=== PATIENT | male | born 1940 | race Caucasian/White ===

== ENCOUNTER 2017-01-06 05:57 | Day surgery (SDC) | payer MEDICARE, OTHER ==
[2017-01-06] MEDS ORDERED: DIPRIVAN 200 MG/20 ML IV ONE (05:58)
[2017-01-06] MEDS ORDERED: SUBLIMAZE 100 MCG/2 ML IV ONE (05:58)
[2017-01-06] MEDS ORDERED: Ketamine HCl 50 MG/ML IJ ONE (05:58)
[2017-01-06] MEDS ORDERED: Xopenex 1.25 MG/0.5 ML UD NEBULE IH ONE (06:47)
[2017-01-06] MEDS ORDERED: Lactated Ringers 1,000 ML IV SCH (07:00)
[2017-01-06] MEDS ORDERED: Sodium Chloride 3 ML UD NEBULES IH SCH (07:00)
[2017-01-06 11:09] VITALS: BP 140/79; PULSE 71; O2SAT 97
--- NOTE | 2017-01-06 11:15 | OP ---
SURGERY DATE/TIME: 01/06/2017 0800 PREOPERATIVE DIAGNOSIS: Iron deficiency anemia. POSTOPERATIVE DIAGNOSES: 1) Mild gastritis. 2) Normal colon. 3) Poor bowel prep. PROCEDURES: 1) EGD. 2) Colonoscopy. SURGEON: Jose Angel Elmore M.D. ANESTHESIA: MAC by Chinedu Jose CRNA. ESTIMATED BLOOD LOSS: Minimal. SPECIMENS: Two cold forceps biopsies from the gastric antrum and sent for Helicobacter pylori testing. DESCRIPTION OF PROCEDURE: After informed written consent was obtained, the patient was taken to the endoscopy suite. He underwent monitored anesthesia and a bite block was inserted. The endoscope was passed into the posterior oropharynx and under direct visualization the esophagus was traversed. The esophageal mucosa had a normal appearance free of lesions or defects. Upon entering the stomach there was normal rugated gastric mucosa. There was noted to have some gastritis-type changes but no focal ulcerations or obvious bleeding in the lower stomach area. The pylorus was traversed and the first and second portions of the duodenum were unremarkable. Two cold forceps biopsies were taken from the gastric antrum and sent for Helicobacter pylori testing. The remainder of the mucosal structures again appeared normal upon withdrawal. The scope was removed and the scopes were switched. A digital rectal exam showed normal sphincter tone and no internal lesions. The scope was inserted in the rectum and sequentially the entire colonic mucosa was traversed. The level of cecum was reached and verified with direct visualization of ileocecal valve. Upon withdrawal careful mucosal inspection revealed no gross abnormalities. There was a fair amount of liquid stool present throughout most of the length of the colon which was suctioned and irrigated in several areas to aid in better visualization. Prior to withdrawal retroflexion was performed and was within normal limits. The scope was removed and the patient was transferred to the recovery room in excellent condition.
[2017-01-06] MEDS ORDERED: Lactated Ringers 1,000 ML IV ONE (15:37)
== END 2017-01-06 10:00 | disposition home or self-care (01) ==
LOC: SDC 05:57
PROVIDERS: ATTEND Family Medicine
PROC: 0DB78ZX Excision of Stomach, Pylorus, Via Natural or Artificial Opening Endoscopic, Diagnostic (ICD-10-PCS; principal; 2017-01-06)
PROC: 0DJD8ZZ Inspection of Lower Intestinal Tract, Via Natural or Artificial Opening Endoscopic (ICD-10-PCS; 2017-01-06)
DX: K29.70 Gastritis, unspecified, without bleeding (principal); D50.9 Iron deficiency anemia, unspecified; I10 Essential (primary) hypertension; E11.9 Type 2 diabetes mellitus without complications; E03.9 Hypothyroidism, unspecified
CPT/HCPCS: 00740; 00810; 36415; 88305; 94640; 99100; J2704; J3010; A9270-GY